=== PATIENT | male | born 1970 | race Two or more races ===

== ENCOUNTER 2022-03-27 17:40 | Emergency (ER) | payer SELFPAY ==
[2022-03-27 17:58] VITALS: BP 200/114; PULSE 82; RESP 18; TEMP 98.2; BMI 31.7
[2022-03-27] MEDS ORDERED: LABETALOL HCL 5 MG/1 ML (100MG/20 ML VIAL) IVPUSH ONE (18:22)
== END 2022-03-27 18:59 | disposition left against medical advice (07) ==
LOC: JER 17:40
DX: R07.9 Chest pain, unspecified (principal)
CPT/HCPCS: 93005; 93010; 99285-25